=== PATIENT | female | born 1940 | race Caucasian/White ===

== ENCOUNTER 2019-03-30 10:18 | Outpatient (CLI) | payer MEDICARE, OTHER ==
[2019-03-30 10:54] LABS: ABG BASE EXCESS 2.7 mmol/L; ABG OXYGEN SATURATION 94.3 % (92.0-98.5); ABG PCO2 36.3 mmHg (35.0-45.0); ABG PH 7.474 (7.350-7.450); ABG PO2 72.6 mmHg (75.0-100.0); AaDO2 33.7 mmHg; COHb 1.2 % (0.5-1.5); MetHb 0.3 % (0.0-1.5); O2Hb 92.9 % (94.0-97.0); SITE, ABG Left Radial; VENT MODE, BG ROOM AIR
== END 2019-03-30 23:59 | disposition home or self-care (01) ==
LOC: RT 10:18
PROVIDERS: ATTEND Internal Medicine Pulmonary Disease
DX: R06.02 Shortness of breath (principal)
CPT/HCPCS: 36600